=== PATIENT | female | born 1990 | race Caucasian/White ===

== ENCOUNTER → 2018-02-28 | Outpatient (REF) | payer BC | LOC: M LAB REF 18:44 | DX: Z12.4 Encounter for screening for malignant neoplasm of cervix (principal) | CPT/HCPCS: G0123 ==

== ENCOUNTER → 2021-07-13 | Outpatient (CLI) | payer BC ==
[~2021-07-13] MED LIST: ANUS2.5C2 PR; DOCU5LIQ PO; IBUP600T26 PO; IBUP600T42 PO; MAPA500T17 PO; MAPA500T2 PO; MILK10SU PO; PREN27TA3 PO
== END ==
LOC: M RAD 11:36
PROVIDERS: ATTEND Internal Medicine
DX: R10.2 Pelvic and perineal pain (principal)

== ENCOUNTER → 2024-03-18 | Outpatient (REF) | payer BC | LOC: M PLALAB 10:26 | PROVIDERS: ATTEND Advanced Practice Midwife | DX: Z34.81 Encounter for supervision of other normal pregnancy, first trimester (principal) ==

== ENCOUNTER → 2024-03-25 | Outpatient (CLI) | payer BC ==
[2024-03-25 10:24] LABS: HEMATOCRIT 37.8 % (36.0-47.0); HEMOGLOBIN 12.8 g/dl (12.0-15.5); MEAN CORPUSCULAR HEMOGLOBIN 29.8 pg (27.0-33.0); MEAN CORPUSCULAR HGB CONC 33.9 g/dl (32.0-36.5); MEAN CORPUSCULAR VOLUME 88.1 fl (80.0-96.0); PLATELET COUNT, AUTOMATED 219 10^3/uL (150-450); RED BLOOD COUNT 4.29 10^6/uL (4.00-5.40); WHITE BLOOD COUNT 7.6 10^3/uL (4.0-10.0)
[2024-03-25 10:47] LABS: HIV 1&2 SCREEN NEGATIVE (NEGATIVE)
[2024-03-25 10:56] LABS: HEPATITIS C VIRUS ABY INDEX < 0.02 INDEX (<0.8)
[2024-03-25 11:55] LABS: GC DNA AMPLIFICATION NEGATIVE (NEGATIVE)
== END ==
LOC: M PLALAB 07:46
PROVIDERS: ATTEND Advanced Practice Midwife
DX: Z34.81 Encounter for supervision of other normal pregnancy, first trimester (principal)

== ENCOUNTER 2024-04-07 11:29 | Emergency (ER) | payer BC ==
[~2024-04-07] VITALS: Ht 170.2 cm; Wt 70.6 kg
[2024-04-07 11:31] VITALS: TEMP 97.9
[2024-04-07 12:20] LABS: HEMATOCRIT 37.8 % (36.0-47.0); HEMOGLOBIN 13.1 g/dl (12.0-15.5); MEAN CORPUSCULAR HEMOGLOBIN 30.3 pg (27.0-33.0); MEAN CORPUSCULAR HGB CONC 34.7 g/dl (32.0-36.5); MEAN CORPUSCULAR VOLUME 87.3 fl (80.0-96.0); PLATELET COUNT, AUTOMATED 235 10^3/uL (150-450); RED BLOOD COUNT 4.33 10^6/uL (4.00-5.40); WHITE BLOOD COUNT 9.8 10^3/uL (4.0-10.0)
[2024-04-07 13:46] VITALS: BP 124/83; O2SAT 96
== END 2024-04-07 13:48 | disposition home or self-care (01) ==
LOC: M ED 11:29
DX: O26.851 Spotting complicating pregnancy, first trimester (principal); Z3A.13 13 weeks gestation of pregnancy; F10.10 Alcohol abuse, uncomplicated; Z79.899 Other long term (current) drug therapy

== ENCOUNTER → 2024-04-24 | Outpatient (CLI) | payer BC | LOC: M PLALAB 07:36 | PROVIDERS: ATTEND Advanced Practice Midwife | DX: Z13.79 Encounter for other screening for genetic and chromosomal anomalies (principal) ==

== ENCOUNTER → 2024-05-21 | Outpatient (CLI) | payer BC | LOC: M WHC 08:09 | PROVIDERS: ATTEND Advanced Practice Midwife | DX: O09.522 Supervision of elderly multigravida, second trimester (principal) ==

== ENCOUNTER → 2024-07-11 | Outpatient (CLI) | payer BC ==
[2024-07-11 10:48] LABS: HEMATOCRIT 35.2 % (36.0-47.0); HEMOGLOBIN 11.7 g/dl (12.0-15.5); MEAN CORPUSCULAR HEMOGLOBIN 30.5 pg (27.0-33.0); MEAN CORPUSCULAR HGB CONC 33.2 g/dl (32.0-36.5); MEAN CORPUSCULAR VOLUME 91.7 fl (80.0-96.0); PLATELET COUNT, AUTOMATED 235 10^3/uL (150-450); RED BLOOD COUNT 3.84 10^6/uL (4.00-5.40); WHITE BLOOD COUNT 10.6 10^3/uL (4.0-10.0)
[2024-07-11 11:24] LABS: GLUCOSE CHALLENGE TEST 1 HOUR 94 MG/DL (LESS THAN 140)
[2024-07-11 11:49] LABS: HIV 1&2 SCREEN NEGATIVE (NEGATIVE)
[2024-07-11 11:56] LABS: HEPATITIS C VIRUS ABY INDEX 0.12 INDEX (<0.8)
[2024-07-11 13:40] LABS: GC DNA AMPLIFICATION NEGATIVE (NEGATIVE)
== END ==
LOC: M PLALAB 07:45
PROVIDERS: ATTEND Advanced Practice Midwife
DX: Z34.82 Encounter for supervision of other normal pregnancy, second trimester (principal)

== ENCOUNTER → 2024-08-27 | Outpatient (CLI) | payer BC | LOC: M WHC 06:43 | PROVIDERS: ATTEND Nurse Practitioner Family | DX: O28.0 Abnormal hematological finding on antenatal screening of mother (principal) ==

== ENCOUNTER → 2024-09-09 | Outpatient (REF) | payer BC | LOC: M SFHCWAGY 12:52 | PROVIDERS: ATTEND Obstetrics & Gynecology | DX: Z36.85 Encounter for antenatal screening for Streptococcus B (principal); Z3A.35 35 weeks gestation of pregnancy ==

== ENCOUNTER → 2024-09-17 | Outpatient (CLI) | payer BC | LOC: M WHC 06:40 | PROVIDERS: ATTEND Nurse Practitioner Family | DX: O28.0 Abnormal hematological finding on antenatal screening of mother (principal) ==

== ENCOUNTER 2024-10-01 02:14 | Inpatient (IN) | payer BC ==
[2024-10-01] VITALS (7 sets, daily range): BP systolic 102–166; BP diastolic 51–63; O2SAT 96–98
[~2024-10-01] VITALS: Ht 170.2 cm; Wt 86.1 kg
[2024-10-01] MEDS ORDERED: ASPI81CH33 PO (02:28)
[2024-10-01] MEDS ORDERED: FOLI20CA PO (02:28)
[2024-10-01] MEDS ORDERED: HOME MED LIST COMPLETE! XX SCH (02:30)
[2024-10-01] MEDS: PENICILLIN G POTASSIUM 5 MU IV 5 MU in DEXTROSE 5% (D5W) MINI-BAG PLU 100 ML IV ONE (02:55)
[2024-10-01] MEDS ORDERED: OXYTOCIN 30UNITS IN 0.9% NaCl 500ML IV BAG As Ordered ONE (02:58)
[2024-10-01] MEDS ORDERED: METHYLERGONOVINE MALEATE 0.2MG/ML 1ML VIAL IM PRN (03:15)
[2024-10-01] MEDS ORDERED: TRANEXAMIC ACID INJection 1,000 MG in NS 100 ML IV PRN (03:15)
[2024-10-01] MEDS ORDERED: CARBOPROST TROMETHAMINE 250 MCG/ML AMP IM PRN (03:15)
[2024-10-01 03:16] LABS: HEMATOCRIT 36.5 % (36.0-47.0); HEMOGLOBIN 11.9 g/dl (12.0-15.5); MEAN CORPUSCULAR HEMOGLOBIN 27.3 pg (27.0-33.0); MEAN CORPUSCULAR HGB CONC 32.6 g/dl (32.0-36.5); MEAN CORPUSCULAR VOLUME 83.7 fl (80.0-96.0); PLATELET COUNT, AUTOMATED 248 10^3/uL (150-450); RED BLOOD COUNT 4.36 10^6/uL (4.00-5.40); WHITE BLOOD COUNT 11.4 10^3/uL (4.0-10.0)
[2024-10-01] MEDS ORDERED: LIDOCAINE 1% MDV 20ML VIAL As Ordered ONE (03:18)
[2024-10-01 03:26] LABS: CORD GAS ABE V -6.3; CORD GAS HCO3 V 24.1 MMOL/L; CORD GAS O2 SAT V 27.1 %; CORD GAS PH V 7.168 UNITS; CORD GAS PO2 V 16.5 mmHg; CORD GAS SBC V 17.6 MMOL/L; CORD GAS TCO2 V 26.2 MMOL/L
[2024-10-01 03:27] LABS: CORD GAS ABE A -8.4; CORD GAS HCO3 A 24.2 MMOL/L; CORD GAS O2 SAT A 26.7 %; CORD GAS PCO2 A 83.3 mmHg; CORD GAS PH A 7.081 UNITS; CORD GAS SBC A 16.2 MMOL/L; CORD GAS TCO2 A 26.8 MMOL/L
[2024-10-01] MEDS: LIDOCAINE 1% MDV 20ML VIAL SC ONE (03:27)
[2024-10-01] MEDS: OXYTOCIN DRIP 30 UNITS in IV 1 EA IV PRN (03:27)
[2024-10-01] MEDS ORDERED: DOCUSATE SODIUM 100MG CAPSULE PO PRN (03:45)
[2024-10-01] MEDS ORDERED: IBUPROFEN 600MG TAB PO PRN (03:45)
[2024-10-01] MEDS ORDERED: ANUSOL HC CREAM 30GM TOP PRN (03:45)
[2024-10-01] MEDS ORDERED: MOM 30ML SUSPENSION UDC PO PRN (03:45)
[2024-10-01 04:15] LABS: HEPATITIS C VIRUS ABY INDEX 0.02 INDEX (<0.8)
[2024-10-01] MEDS: IBUPROFEN 800 MG TAB PO PRN (04:32)
[2024-10-01] MEDS: ACETAMINOPHEN 500 MG TAB PO PRN (04:33)
[2024-10-01] MEDS: PRENATAL VITAMINS CHEWABLE TABLET PO SCH (08:01)
[2024-10-01] MEDS: ACETAMINOPHEN 325 MG TAB PO PRN (18:06)
[2024-10-01] MEDS: RHOGAM 300MCG (1500IU) INJ IM SCH (20:51)
[2024-10-02 03:44] LABS: HIV 1&2 SCREEN NEGATIVE (NEGATIVE)
[2024-10-02 05:59] VITALS: BP 101/61; O2SAT 97
[2024-10-02 18:00] VITALS: BP 109/55; O2SAT 98
[2024-10-03 06:00] VITALS: BP 116/60; O2SAT 99
[2024-10-03] MEDS: DIBUCAINE 1% OINTMENT 30GM TOP PRN (08:07)
[2024-10-03] MEDS: MEASLES,MUMPS,RUBELLA VACCINE INJ (MMR-II) SC.IMMUN ONE (08:11)
[2024-10-03] MEDS ORDERED: ACET-683 PO (08:32)
[2024-10-03] MEDS ORDERED: IBUP80TA PO (08:32)
== END 2024-10-03 12:30 | disposition home or self-care (01) | DRG 560 ==
LOC: M LDO 02:14 → M LDI 03:00 → M OBS 04:55
PROVIDERS: ADMIT Advanced Practice Midwife; ATTEND Advanced Practice Midwife
PROC: 10E0XZZ Delivery of Products of Conception, External Approach (ICD-10-PCS; principal; 2024-10-01)
PROC: 0HQ9XZZ Repair Perineum Skin, External Approach (ICD-10-PCS; 2024-10-01)
DX: O99.824 Streptococcus B carrier state complicating childbirth (principal); O09.523 Supervision of elderly multigravida, third trimester; Z37.0 Single live birth; Z3A.38 38 weeks gestation of pregnancy; O62.3 Precipitate labor; O76 Abnormality in fetal heart rate and rhythm complicating labor and delivery; O70.0 First degree perineal laceration during delivery

== ENCOUNTER → 2025-02-13 | Outpatient (REF) | payer BC ==
[~2025-02-13] MED LIST changes: +ACET-683 PO; +ASPI81CH33 PO; +FOLI20CA PO; +IBUP80TA PO
[2025-02-15 13:57] LABS: HPV APTIMA Not Detected (Not Detected)
== END ==
LOC: M SFHCWAGY 13:04
PROVIDERS: ATTEND Advanced Practice Midwife
DX: Z11.51 Encounter for screening for human papillomavirus (HPV) (principal)
CPT/HCPCS: 87624; G0123

== ENCOUNTER → 2025-03-06 | Outpatient (CLI) | payer BC ==
[2025-03-06 08:23] LABS: ALT/SGPT 15.0 U/L (7.0-40); AST/SGOT 13.0 U/L (<34)
== END ==
LOC: M LAB 07:22
PROVIDERS: ATTEND Podiatrist
DX: Z79.899 Other long term (current) drug therapy (principal)

== ENCOUNTER → 2025-04-18 | Outpatient (CLI) | payer BC ==
[2025-04-18 09:12] LABS: ALT/SGPT 10.0 U/L (7.0-40); AST/SGOT 13.0 U/L (<34)
== END ==
LOC: M LAB 08:08
PROVIDERS: ATTEND Podiatrist
DX: Z51.81 Encounter for therapeutic drug level monitoring (principal); Z79.899 Other long term (current) drug therapy